=== PATIENT | female | born 1955 | race Caucasian/White ===

== ENCOUNTER 2023-05-28 22:29 | Inpatient (IN) | payer OTHER, SELFPAY ==
[~2023-05-28 22:29] MED LIST: Iopamidol 370 76% 100 ML VIAL ONE
[2023-05-28] MEDS ORDERED: GASTROGRAFIN 30 ML BOT ONE (23:19)
[2023-05-28] MEDS ORDERED: Piperacillin/Tazobactam 3.375 GM VIAL ONE (23:21)
[2023-05-28] MEDS ORDERED: Sodium Chloride 0.9% 100 ML ONE (23:24)
[2023-05-28 23:44] LABS: #Basophils 0.04 10x3/uL (0.0-0.2); %Basophils 0.3 % (0.0-1.0); %Eosinophils 2.6 % (0.0-10.0); %Lymphocytes 17.9 % (21.0-51.0); %Monocytes 9.9 % (0.0-10.0); %Neutrophils 69.1 % (42.0-75.0); Anion Gap 12 mmol/L (10-20); Globulin 3.4 g/dL (2.4-3.5); Hematocrit 33.3 % (36.0-47.0); Hemoglobin 10.8 g/dL (12.0-16.0); Mean Corpuscular HGB CONC 32.4 g/dL (32.0-36.0); Mean Corpuscular Hemoglobin 28.5 pg (27.0-31.0); Mean Corpuscular Volume 87.9 fL (78.0-98.0); Mean Platelet Volume 10.9 fL (7.4-10.4); Platelet Count 251 10x3/uL (130-400); RBC Distribution Width 14.5 % (11.5-14.5); Red Blood Cell (RBC) Count 3.79 mill/uL (4.20-5.40)
[2023-05-28 23:48] LABS: ALT (SGPT) 47 U/L (8-55); AST (SGOT) 72 U/L (5-34); Albumin 3.4 g/dL (3.4-4.8); Alkaline Phosphatase 160 U/L (40-110); BUN (Urea Nitrogen) 19 mg/dL (9.8-20.1); Bilirubin, Total 0.4 mg/dL (0.2-1.2); Calc. Creatinine Clearance 0 mL/min (70-130); Calcium 8.9 mg/dL (7.8-10.44); Carbon Dioxide 25 mmol/L (23-31); Chloride 105 mmol/L (98-107); Estimated GFR 60; Glucose 83 mg/dL (80-115); Lipase 12 U/L (8-78); Potassium 3.3 mmol/L (3.5-5.1); Protein, Total 6.8 g/dL (5.8-8.1); Sodium 139 mmol/L (136-145)
[2023-05-28 23:53] LABS: Troponin I Less than 0.010 ng/mL (< 0.028)
[2023-05-29 00:02] LABS: PTT 34.2 sec (22.9-36.1); Prothrombin Time 13.2 sec (12.0-14.7)
[2023-05-29] MEDS ORDERED: Ondansetron PF 4 MG/2 ML Vial IVP PRN (01:02)
[2023-05-29] MEDS ORDERED: Acetaminophen 325 MG TAB PO PRN (01:02)
[2023-05-29 02:46] VITALS: BMI 26.9
[2023-05-29] MEDS: Vancomycin (BATCH) 1.5 GM in Premix 1 BAG IVPB SCH (02:48)
[2023-05-29] MEDS: Potassium Bicarbonate/Cit Ac 20 MEQ TAB PO SCH (02:59)
[2023-05-29] MEDS: Acetaminophen/Codeine 30-300mg Tablet PO PRN (03:02)
[2023-05-29 04:49] LABS: #Basophils 0.06 10x3/uL (0.0-0.2); %Basophils 0.5 % (0.0-1.0); %Eosinophils 1.7 % (0.0-10.0); %Lymphocytes 13.9 % (21.0-51.0); %Monocytes 9.1 % (0.0-10.0); %Neutrophils 74.6 % (42.0-75.0); Hematocrit 32.8 % (36.0-47.0); Hemoglobin 10.8 g/dL (12.0-16.0); Mean Corpuscular HGB CONC 32.9 g/dL (32.0-36.0); Mean Corpuscular Volume 87.9 fL (78.0-98.0); Mean Platelet Volume 10.4 fL (7.4-10.4); Platelet Count 243 10x3/uL (130-400); RBC Distribution Width 14.5 % (11.5-14.5); Red Blood Cell (RBC) Count 3.73 mill/uL (4.20-5.40)
[2023-05-29 05:41] LABS: Anion Gap 13 mmol/L (10-20)
[2023-05-29 05:45] LABS: BUN (Urea Nitrogen) 15 mg/dL (9.8-20.1); Calc. Creatinine Clearance 61 mL/min (70-130); Calcium 8.8 mg/dL (7.8-10.44); Carbon Dioxide 25 mmol/L (23-31); Chloride 105 mmol/L (98-107); Estimated GFR 65; Glucose 111 mg/dL (80-115); Magnesium 1.9 mg/dL (1.6-2.6); Potassium 3.5 mmol/L (3.5-5.1); Sodium 139 mmol/L (136-145)
[2023-05-29] MEDS: Magnesium 2 GM/50 ML(in water) 2 GM in Premix 1 BAG IVPB SCH (08:51)
[2023-05-29] MEDS: Potassium Chloride 20 MEQ in Premix 1 BAG IVPB SCH (08:52)
[2023-05-29] MEDS: Carvedilol 6.25 MG TAB PO SCH (08:53)
[2023-05-29] MEDS: Senokot S 8.6-50 MG TAB PO SCH (08:53)
[2023-05-29] MEDS: Pantoprazole DR 40 MG TAB PO SCH (08:53)
[2023-05-29] MEDS: Polyethylene Glycol 3350 17 GM Packet PO SCH (08:53)
[2023-05-29] MEDS: metroNIDAZOLE 500 MG TAB PO SCH ×2 (10:14→15:57)
[2023-05-29] MEDS: Vancomycin HCl 750 MG in Sodium Chloride 0.9% 250 ML 250 ML IVPB SCH (12:51)
[2023-05-29] MEDS: Atorvastatin Calcium 10 MG TAB PO SCH (21:05)
[2023-05-30 04:04] LABS: #Basophils 0.06 10x3/uL (0.0-0.2); %Basophils 0.5 % (0.0-1.0); %Eosinophils 1.5 % (0.0-10.0); %Lymphocytes 16.2 % (21.0-51.0); %Monocytes 9.7 % (0.0-10.0); %Neutrophils 71.8 % (42.0-75.0); Hematocrit 33.7 % (36.0-47.0); Hemoglobin 10.8 g/dL (12.0-16.0); Mean Corpuscular Hemoglobin 28.6 pg (27.0-31.0); Mean Corpuscular Volume 89.2 fL (78.0-98.0); Mean Platelet Volume 10.6 fL (7.4-10.4); Platelet Count 267 10x3/uL (130-400); RBC Distribution Width 14.5 % (11.5-14.5); Red Blood Cell (RBC) Count 3.78 mill/uL (4.20-5.40)
[2023-05-30 05:09] LABS: Anion Gap 12 mmol/L (10-20)
[2023-05-30 05:10] LABS: Vancomycin, Random 19.8 ug/mL (See Comment)
[2023-05-30 05:13] LABS: BUN (Urea Nitrogen) 16 mg/dL (9.8-20.1); Calc. Creatinine Clearance 60 mL/min (70-130); Calcium 8.7 mg/dL (7.8-10.44); Carbon Dioxide 23 mmol/L (23-31); Chloride 108 mmol/L (98-107); Estimated GFR 63; Glucose 104 mg/dL (80-115); Magnesium 2.2 mg/dL (1.6-2.6); Potassium 3.7 mmol/L (3.5-5.1); Sodium 139 mmol/L (136-145)
[2023-05-31 05:03] LABS: #Basophils 0.05 10x3/uL (0.0-0.2); %Basophils 0.4 % (0.0-1.0); %Eosinophils 3.3 % (0.0-10.0); %Lymphocytes 17.4 % (21.0-51.0); %Monocytes 10.5 % (0.0-10.0); Hematocrit 33.7 % (36.0-47.0); Hemoglobin 10.9 g/dL (12.0-16.0); Mean Corpuscular HGB CONC 32.3 g/dL (32.0-36.0); Mean Corpuscular Hemoglobin 28.5 pg (27.0-31.0); Mean Corpuscular Volume 88.2 fL (78.0-98.0); Mean Platelet Volume 10.9 fL (7.4-10.4); Platelet Count 276 10x3/uL (130-400); RBC Distribution Width 14.4 % (11.5-14.5); Red Blood Cell (RBC) Count 3.82 mill/uL (4.20-5.40)
[2023-05-31 05:34] LABS: Anion Gap 14 mmol/L (10-20); Globulin 3.3 g/dL (2.4-3.5)
[2023-05-31 05:39] LABS: ALT (SGPT) 48 U/L (8-55); AST (SGOT) 20 U/L (5-34); Albumin 2.9 g/dL (3.4-4.8); Alkaline Phosphatase 160 U/L (40-110); BUN (Urea Nitrogen) 16 mg/dL (9.8-20.1); Bilirubin, Total 0.3 mg/dL (0.2-1.2); Calc. Creatinine Clearance 71 mL/min (70-130); Calcium 8.7 mg/dL (7.8-10.44); Carbon Dioxide 22 mmol/L (23-31); Chloride 108 mmol/L (98-107); Estimated GFR 78; Glucose 103 mg/dL (80-115); Magnesium 1.9 mg/dL (1.6-2.6); Potassium 3.5 mmol/L (3.5-5.1); Protein, Total 6.2 g/dL (5.8-8.1); Sodium 140 mmol/L (136-145)
[2023-05-31 08:39] VITALS: BP 124/80
[2023-05-31 08:59] VITALS: TEMP 97.9
== END 2023-05-31 12:25 | disposition home or self-care (01) | DRG 394 ==
LOC: ERS 22:29 → MSONC 05-29 00:45
PROVIDERS: ADMIT Internal Medicine; ATTEND Internal Medicine
DX: K94.22 Gastrostomy infection (principal); L03.311 Cellulitis of abdominal wall; C76.0 Malignant neoplasm of head, face and neck; I10 Essential (primary) hypertension; E78.5 Hyperlipidemia, unspecified; K21.9 Gastro-esophageal reflux disease without esophagitis; E87.6 Hypokalemia; D72.829 Elevated white blood cell count, unspecified; E27.8 Other specified disorders of adrenal gland; K80.20 Calculus of gallbladder without cholecystitis without obstruction; Z96.0 Presence of urogenital implants; Z98.890 Other specified postprocedural states; Z87.891 Personal history of nicotine dependence
CPT/HCPCS: 36415; 74018; 74177; 80048; 80053; 80202; 83605; 83690; 83735; 84484; 85025; 85610; 85730; 87040; 87070; 87077; 87186; 87205; 96374; 96375; J2543; J3370; J3475; J3480; J3490; J7050; Q9963; Q9967